=== PATIENT | male | born 1955 | race Caucasian/White ===

== ENCOUNTER 2019-08-23 12:09 | Observation (INO) | payer BC, SELFPAY ==
[2019-08-20 17:17] VITALS: BMI 25.7
[2019-08-23] VITALS (17 sets, daily range): BP systolic 100–134; BP diastolic 57–91; PULSE 74–101; RESP 16–20; TEMP 36.6–37.2; O2SAT 93–100
--- NOTE | 2019-08-23 08:11 | ANES.PREANE2 ---
Pre-Anesthetic Assessment Pre-Anesthetic Assessment: Height/Weight: Height 1.83 m Weight 86.183 kg Temp Pulse Resp BP Pulse Ox 97.9 F 74 18 128/91 95 08/23/19 07:35 08/23/19 07:35 08/23/19 07:35 08/23/19 07:35 08/23/19 07:35 Preop Diagnosis: Osteoarthritis right knee Proposed Procedure: Operation Date: 08/23/19 09:25 Proposed Procedures p right total knee arthroplasty (97923) M17.1(Right) - Mahesh David MD Familial anesthetic complications: None Was Beta Jaden taken within 24 hours: N/A Last intake: Intake Last Liquid Date 08/22/19 Last Solid Date 08/22/19 Social: Social History: No alcohol and No tobacco Exam: Pre-Anes Outpt Exam: alert, oriented x 3, clear to auscultation bilaterally and regular rate & rhythm Airway: Cervical ROM: WNL MP: 2 Dentition: False Pulmonary: Pulmonary: COPD (mild) CV/HEM: CV/HEM: None reported Musc/skel: Musc/skel: OA/DJD Neuropsych: Neuropsych: Neuropathy Anesthetic Plan: ASA status: 2 Anesthesia: General and Regional (specify below) Risk of > 500 ml blood loss (7ml/kg in children): Yes, adequate IV access and fluids planned PFSH Anesthesia PFSH: Social History (Updated 08/05/19 @ 15:18 by Afshan Mckinney LPN) Smoking and tobacco status: never smoked Alcohol intake: never Data Anesthesia Cardiac Studies: No Data to Display
--- NOTE | 2019-08-23 08:12 | ANES.PROC ---
Anesthesia Procedures Procedure/Date: 08/23/19 Nerve Block ^: Nerve Block 1: Main Anesthesia: general anesthesia Time Out Performed: Yes Consent: requested by attending/covering physician, from patient, risks and benefits reviewed and patient agrees to proceed Nerve block location: adductor canal (R) Anesthesia monitors applied: pulse oximetry, BP cuff and oxygen Nerve block position: semi sitting Anesthetic Used: ropivicaine 0.5% and with decadron (4 mg) Amount of anesthesia used (mL): 30 Nerve Stimulator Used?: No Interscalene/Femoral BLK: 4 stimuplex 21 g needle used for position and inplane approach Injection: neg aspiration of heme Patient Tolerated Procedure: well and no complications Complications: none
[2019-08-23] MEDS: midazolam 1 mg/mL INJ 2 mL 2 MG IVP (08:18)
--- NOTE | 2019-08-23 09:24 | W.PM.OPSUD ---
Surgery/Procedure H&P Update DATE OF PROCEDURE: August 23, 2019 DATE H&P PERFORMED: 08/05/19 PREOP DIAGNOSIS: Osteoarthritis right knee PLANNED PROCEDURE: Operation Date: 08/23/19 09:25 Proposed Procedures p right total knee arthroplasty (35934) M17.1(Right) - Mahesh David MD
--- NOTE | 2019-08-23 10:30 | SUR.OPER ---
1015 - Pt's brother in law notified of surgery start via his cell phone.
[2019-08-23] MEDS: ketorolac 30 mg/mL INJ XX (11:07)
[2019-08-23] MEDS: EPINEPHrine 1 mg/mL INJ XX (11:07)
[2019-08-23] MEDS: tranexamic acid 1,000 mg/10mL SDV 1000 MG IRRIGATION (11:11)
--- NOTE | 2019-08-23 11:49 | XR_ITS ---
WS: [id number] XR knee RT 3V* [id number] REASON FOR EXAM: status post right total knee arthroplasty FINDINGS: Total knee arthroplasty on the right side. The hardware is seen in good position. No dysfunction is noted. XR/XR knee RT 3V* [id number] IMPRESSION: Total knee replacement satisfactory alignment.
--- NOTE | 2019-08-23 11:50 | PM.OP ---
Operative Report Date of procedure: August 23, 2019 Pre-op Diagnosis: Osteoarthritis right knee Post-op diagnosis: same Post-op Findings: Same Procedure Done: Right total knee arthroplasty Implants: Vilma total knee arthroplasty components were used includin) Size 5 triathalon cruciate retaining femoral component 2) Size 4 Tritanium tibial component 3) 35 mm /10 mm thickness Tritanium asymetric patella 4) Size 4/11 mm thickness CR tibial bearing insert Pathology: none sent Surgeon: Mahesh David Anesthesia: General and Nerve Block (Adductor canal) Estimated blood loss (mL): 300 Complications: None Findings: Patient eburnated bone over the medial femoral condyle medial tibial plateau Condition: stable Disposition: PACU Procedure: The patient was taken to the operating room. Patient was given 1 g of tranexamic acid . The above anesthesia provided by the anesthesia service. A timeout was performed. The patient was prepped and draped in the usual fashion with the lower extremity exposed. A anterior incision was made, midline, from a point proximal to the patella to the distal tibial tubercle. Dissection was accomplished through the subcutaneous fat to the extensor mechanism. The vastus medialis oblique is musculature was elevated with a retractor and a capsular incision made from the medial patella along the patellar tendon up into the superior capsule. The patella could be displaced laterally and the knee flexed. The patellar fat pad was resected to provide better visibility. Retractors were placed medially and laterally adjacent to the tibial plateau. The femoral canal was drilled in line with the longitudinal axis of the femur. Intramedullary femoral guide for used to make a distal femoral cut in 5 degrees of valgus, resecting 8 mm from the more prominent condyle. Next the extra medullary tibial guide was placed in alignment with the longitudinal axis of the tibia. The cutting guides were set to remove just over 9 mm from the high tibial plateau. The proximal tibia was then cut. The femoral measuring guide was then placed over the distal femur. Rotation was verified checking the relationship of the guide to the condyle and the trochlear groove. The femur was measured and cut for the desired femoral component. The desired tibial baseplate was then chosen. A trial reduction with the femur tibial baseplate and polyethylene was done, assuring that the knee was stable throughout full motion. Ligament balancing involved release of the deep medial collateral ligament and removal of medial osteophytes off of the tibia.The tibia was prepared for the tibial baseplate. Patellar thickness was then measured. The patella was cut removing articular cartilage and prepared for appropriate size patellar button. All surfaces were cleaned with pulsatile lavage. The femur tibia and patella were then press-fit into place. The posterior capsule and collateral ligaments were then injected with a solution of 100 mL of 0.2% ropivacaine, 1 mL of a 1:1000 epinephrine solution, and 30 mg of Toradol. Final polyethylene component was then snapped into place into the tibia. 2 grams of tranexamic acid were applied to the wound. The tourniquet was deflated. The tranxanemic acid was left contact with the knee for 5 minutes before the knee was irrigated with saline. The extensor retinaculum was closed with 1 Ethibond. The subcutaneous tissues were closed with 2-0 Vicryl and the skin was closed with skin mack. A compressive dressing was applied. The patient was taken to recovery room in stable condition.
--- NOTE | 2019-08-23 12:03 | SUR.PHASEI ---
PT AWAKE ALERT TAKING ICE CHIPS ON 3LNC SATS 100% PT SMILING TALKATIVE, C/O OF RT KNEE PAIN BUT STATES (ITS BETTER) PT REMINDED OF BLOCK TO THAT AREA. DISTAL PULSE MARKED FOOT COOL BUT CAP REFILL LESS THAN 3 SECONDS. X RAY DONE FIRST ICE TO RT KNEE DRESSING D/I
--- NOTE | 2019-08-23 12:39 | SUR.PHASEI ---
1220 PT TO FLOOR PER BED PT AWAKE ALERT TALKATIVE , PT GLASSES AND UPPER DENTURES IN , NURSE IN ROOM, PT GIVEN SPRITE TO SIP ON , BP 131/820, HR 81 SATS ON RA 96%
[2019-08-23] MEDS: chlorhexidine gluconate 0.12% Btl 473 mL 30 ML MUCOUS MEM ×3 (13:32→20:44)
[2019-08-23] MEDS: sodium chloride 0.9% 1,000 ML 100 ML IV (13:32)
[2019-08-23] MEDS: oxyCODONE 5 mg IR Tab/Cap 10 MG PO ×2 (13:33→22:14)
[2019-08-23] MEDS: cyclobenzaprine 10 mg Tablet 5 MG PO (15:14)
[2019-08-23] MEDS: mupirocin oint 22 gm 1 APPLIC NASAL (17:45)
[2019-08-23] MEDS: sennosides-docusate Tablet 2 TAB PO (17:47)
--- NOTE | 2019-08-23 19:13 | PC.NURSE ---
PATIENT COMPLAINED, RAIMUNDO WRAP IS TOO TIGHT . REWRAPPED PER PATIENT REQUEST
[2019-08-24] VITALS (7 sets, daily range): BP systolic 91–116; BP diastolic 51–69; PULSE 71–79; RESP 16–18; TEMP 36.5–36.8; O2SAT 95–100
[2019-08-24] MEDS: sodium chloride 0.9% 1,000 ML 100 ML IV ×2 (01:55→09:06)
[2019-08-24] MEDS: oxyCODONE 5 mg IR Tab/Cap 10 MG PO ×2 (04:46→11:10)
--- NOTE | 2019-08-24 05:27 | PC.NURSE ---
SHIFT ASSESSMENT FOR 08/23/2019 AT 2100 UPON ASSESSMENT RAIMUNDO WRAP WAS NOTED TO BE VERY LOOSE. WRAP REINFORCED APPROPRIATELY.
[2019-08-24 06:21] LABS: Hemoglobin 10.9 g/dL (11.7-16.6)
[2019-08-24] MEDS: aspirin 325 mg EC Tablet PO (09:05)
[2019-08-24] MEDS: meloxicam 7.5 mg tablet 15 MG PO (09:05)
[2019-08-24] MEDS: fluoxetine 20 mg Capsule PO (09:05)
[2019-08-24] MEDS: gabapentin 300 mg Capsule 600 MG PO (09:05)
[2019-08-24] MEDS: omega-3 fatty acids 1,000 mg Capsule 1000 MG PO (09:05)
[2019-08-24] MEDS: chlorhexidine gluconate 0.12% Btl 473 mL 30 ML MUCOUS MEM (09:06)
[2019-08-24] MEDS: sennosides-docusate Tablet 2 TAB PO (09:06)
[2019-08-24] MEDS: mupirocin oint 22 gm 1 APPLIC NASAL (09:07)
--- NOTE | 2019-08-24 11:36 | PC.NURSE ---
checked with SS and she said she is good with patient calling family for ride home. automobile and property underwriter notified patient. patient's family is in [place].
--- NOTE | 2019-08-24 14:28 | PC.NURSE ---
patient's family arrived. patient taken to private vehicle via wheelchair and assisted in vehicle.
--- NOTE | 2019-08-26 16:16 | PM.DCS ---
Discharge Providers Date of Admission: 08/23/19 12:09 Date of Discharge: August 26, 2019 Attending Provider at Admission: Mahesh David MD Attending Provider at Discharge: Mahesh David MD Diagnoses at Discharge Discharge Diagnosis (1) Status post total right knee replacement: Status: Acute (2) Osteoarthritis of right knee: Status: Acute Hospital Course Hospital Course: The patient tolerated surgery well. He remained hemodynamically stable. He was begun on aspirin and sequential compression devices for DVT prophylaxis. The patient was mobilized with therapy beginning the day of surgery and by the first postoperative day independent with the walker. As the pain was adequately controlled and they were fully mobile they were discharged home. Physical Exam Narrative: EXAM NARRATIVE: Patient's dressings were clean and dry. He had minimal swelling of the operative lower extremity. There are no distal neurovascular deficits. Urinary Catheter Management^: Multani: Cath Placed During This Visit: yes, but has since been removed by the nurse Reason for Continuing Indwelling Catheter: Decision to DC Catheter Urinary Catheter Date of Insertion: 08/23/19 Urinary Catheter Time of Insertion: 09:55 Date Urinary Catheter Removed: 08/24/19 Time Urinary Catheter Discontinued: 04:45 Discharge Data Data Completed and Pending: Completed Studies During Hospitalization Category Date Time Status XR knee RT 3V* [id number] Routine Exams 08/23/19 11:49 Completed Vitals: Last Vital Signs Temp 98.2 F 08/24/19 14:29 Pulse 71 08/24/19 14:29 Resp 16 08/24/19 14:29 BP 113/69 08/24/19 14:29 Pulse Ox 100 08/24/19 14:29 Discharge Plan Discharge Patient Disposition: Home Health Service Condition: Stable Prescriptions: New aspirin 325 mg Tablet,Delayed Release (Dr/Ec) 325 mg PO DAILY Qty: 30 RF: 0 oxycodone 5 mg Tablet 10 mg PO Q4H PRN (Reason: Severe Pain) Qty: 40 RF: 0 Continued hydrocodone-acetaminophen [[place]] 7.5-325 mg tablet 1 tab PO Q6H PRN (Reason: Pain) RF: 0 cyclobenzaprine 5 mg tablet 5 mg PO TID PRN (Reason: MUSCLE SPASMS) RF: 0 fluoxetine [Prozac] 20 mg capsule 20 mg PO DAILY RF: 0 colesevelam 625 mg tablet 1,875 mg PO BID RF: 0 meloxicam 15 mg tablet 15 mg PO DAILY RF: 0 omega-3 fatty acids [Fish Oil Concentrate] 1,000 mg capsule 1,000 mg PO DAILY RF: 0 cholecalciferol (vitamin D3) 1,250 mcg (50,000 unit) capsule 1,250 unit PO DAILY RF: 0 mupirocin 2 % ointment 1 applic TOPICAL BID Qty: 22 RF: 0 gabapentin 600 mg tablet 600 mg PO DAILY RF: 0 Other Ambulatory Orders: DME: Walker (Order) Location: None Selected Ordered By: Mahesh David Referrals: Mahesh David MD [Physician] - 09/06/19 1:30 pm Discharge Diet: Advance as tolerated Discharge Activity: Use walker/crutches as instructed Patient Instructions: Oxycodone/Acetaminophen (By mouth), Aspirin (By mouth), Total Knee Replacement (DC) Activity Restrictions/Additional Instructions: May shower once incisions completely free of drainage. Replaced dressings as needed for drainage.. Take Celebrex twice a day for the next 15 days, discontinue other anti-inflammatories Take oxycodone for breakthrough pain. Exercises per physical therapy. Ice and elevate knees as needed for pain and swelling.. Discharge Date/Time: 08/24/19 14:29 Discharge Attestations Time Spent in Discharge Care*: other Quality Metrics Clinical Quality Measures During this hospital stay, did patient experience: None Coding Level of Care Code Acute Line Haul Owner Operator for Clarisa Wills Diagnoses Status post total right knee replacement Z96.651 Osteoarthritis of right knee M17.11
== END 2019-08-24 14:29 | disposition home health service (06) ==
LOC: MEDSURG 12:10
PROVIDERS: Admitting Provider Orthopaedic Surgery; Visit Provider Orthopaedic Surgery
PROC: (CPT 27447; principal; 2019-08-23 09:20)
DX: M17.11 Unilateral primary osteoarthritis, right knee (principal); J44.9 Chronic obstructive pulmonary disease, unspecified
CPT/HCPCS: 27447; 12345; 36415; 51702; 73562; 85018; 96374; 97110; 97116; 97161; 97165; C1776; G0378; J0171; J0330; J0690; J1100; J1580; J1885; J2001; J2250; J2405; J2704; J2795; J3010; J3490; J7030

== ENCOUNTER → 2019-09-30 13:43 | Outpatient (BNVA) | payer BC, SELFPAY | PROVIDERS: Visit Provider Orthopaedic Surgery | DX: M17.11 Unilateral primary osteoarthritis, right knee (principal); Z96.651 Presence of right artificial knee joint | CPT/HCPCS: 73560; 73565 ==